=== PATIENT | male | born 1990 | race Two or more races ===

== ENCOUNTER 2020-01-16 21:36 | Emergency (ER) | payer OTHER ==
[~2020-01-16] VITALS: Ht 182.9 cm; Wt 108.9 kg
== END 2020-01-17 01:25 | disposition home or self-care (01) ==
LOC: ER 21:36
DX: N20.0 Calculus of kidney (principal); R10.84 Generalized abdominal pain; R11.11 Vomiting without nausea

== ENCOUNTER → 2020-11-16 | Emergency (ER) | payer OTHER ==
[~2020-11-16] VITALS: Ht 182.9 cm; Wt 120.7 kg
[~2020-11-16] MED LIST: ORASEP SPRAY30 ML MM; ZYNCOF 20-400120 ML PO
== END | disposition home or self-care (01) ==
LOC: ER 22:49
DX: J06.9 Acute upper respiratory infection, unspecified (principal); H66.91 Otitis media, unspecified, right ear; Z20.822 Contact with and (suspected) exposure to COVID-19